=== PATIENT | female | born 1955 | race Caucasian/White ===

== ENCOUNTER 2019-07-03 12:10 | Outpatient (CLI) | payer MEDICAID, SELFPAY ==
--- NOTE | 2019-07-03 12:16 | USCV_ITS ---
Joanne Go Age: 64 Gender: F : 1955 Exam Date: 07/03/2019 12:54 Ordering Phys: Xuan Jackson Technologist: Hugo Lopez Exam Location: [facility] [place] Indication: AP PROS BP: 130 / 74 HR: 70 Rhythm: Sinus Technical Quality: Adequate MEASUREMENTS (Male / Female) Normal Values 2D ECHO LV Diastolic Diameter PLAX 4.4 cm 4.2 - 5.9 / 3.9 - 5.3 cm LV Systolic Diameter PLAX 2.6 cm IVS Diastolic Thickness 1.3 cm 0.6 - 1.0 / 0.6 - 0.9 cm IVS Systolic Thickness 1.3 cm LVPW Diastolic Thickness 1.3 cm 0.6 - 1.0 / 0.6 - 0.9 cm LVPW Systolic Thickness 1.4 cm LVOT Diameter 2.2 cm LV Ejection Fraction 2D Teich 71.4 % LA Diameter 4.1 cm LA Width 3.7 cm LA Height 5.2 cm RA Width 3.9 cm RA Height 3.7 cm Aorta at Sinotubular Diameter 2.8 cm M-MODE Aortic Annulus Diameter 3.2 cm LA Ao Ratio MM 1.3 MV E Point Septal Separation 1.5 cm DOPPLER AV Peak Velocity 356.0 cm/s LVOT Peak Velocity 91.0 cm/s AV Area Cont Eq vti 1.0 cm squared AV Area Cont Eq pk 1.0 cm squared MV E' Velocity 12.0 cm/s TR Peak Velocity 369.0 cm/s TR Peak Gradient 54.4 mmHg TV Peak E Velocity 121.0 cm/s Right Atrial Pressure 3.0 mmHg Pulmonary Artery Systolic Pressu 57.5 mmHg FINDINGS Left Ventricle Normal left ventricular cavity size. Moderately decreased left ventricular systolic function. Left ventricular ejection fraction is estimated at 45 %. Global left ventricular hypokinesis. Right Ventricle The right ventricle is normal in size and function. RVSP could not be calculated due to incomplete tricuspid regurgitation velocity profile. Right Atrium The right atrium is normal in size. Left Atrium The left atrium is normal in size. Mitral Valve Mildly thickened mitral valve. No mitral valve stenosis. Mild mitral valve regurgitation. Aortic Valve There appeared to be bioprosthetic valve sitting in a normal position without significant paravalvular leak. There appeared to be trace aortic valve regurgitation. Peak pressure gradient across the aortic valve is 50 mmHg while mean pressure gradient is 21 mmHg Tricuspid Valve Mild tricuspid valve regurgitation. Pulmonic Valve Mild pulmonary valve regurgitation. Pericardium Normal pericardium without effusion. Aorta Normal ascending aorta dimension. CONCLUSIONS 1-Normal left ventricular cavity size. Moderately decreased left ventricular systolic function. Left ventricular ejection fraction is estimated at 45 %. Global left ventricular hypokinesis. 2-Mildly thickened mitral valve. No mitral valve stenosis. Mild mitral valve regurgitation. 3-There appeared to be bioprosthetic valve sitting in a normal position without significant paravalvular leak. There appeared to be trace aortic valve regurgitation.Peak pressure gradient across the aortic valve is 50 mmHg while mean pressure gradient is 21 mmHg 4-There is no pericardial effusion. 5-When compared to the prior echocardiogram dated 07/25/2016, peak pressure gradient across the aortic valve has increased from 23 mmHg to 50 mmHg while mean aortic gradient has increased from 9 mmHg to 21 mmHg. Ventricle ejection fraction has worsened from normal 66% to 45% now. Tonia Bacon MD (Electronically Signed) Final Date: 03 July 2019 17:33 S
== END 2019-07-03 12:11 | disposition home or self-care (01) ==
LOC: US 12:12
PROVIDERS: Family Provider Family Medicine; PCP Family Medicine; Visit Provider Internal Medicine Hematology & Oncology
DX: I08.3 Combined rheumatic disorders of mitral, aortic and tricuspid valves (principal); Z95.4 Presence of other heart-valve replacement
CPT/HCPCS: 93306